=== PATIENT | male | born 1980 | race Caucasian/White ===

== ENCOUNTER 2025-06-04 12:29 | Day surgery (SDC) | payer BC ==
[~2025-06-04] VITALS: Ht 193 cm; Wt 148.6 kg
[2025-06-04] MEDS ORDERED: CYCL10 PO (12:36)
[2025-06-04] MEDS ORDERED: HYDACE10B (12:37)
[2025-06-04] MEDS ORDERED: FLUT1DIS5 (12:38)
[2025-06-04] MEDS ORDERED: CeFAZolin Sodium 3,000 MG VIAL ONE (13:14)
[2025-06-04] MEDS ORDERED: ALLEGRA ALLERGY60 MG (13:25)
[2025-06-04] MEDS ORDERED: NAPR220 (13:25)
[2025-06-04] MEDS ORDERED: FentaNYL Citrate 50 MCG/ML 2 ML Injection ONE ×2 (13:46→14:32)
[2025-06-04] MEDS ORDERED: Midazolam HCl 1MG / ML 2ML Vial ONE (13:47)
--- NOTE | 2025-06-04 14:12 | NUR ---
06/04/25 1412 Yvette Sierra 1404: TIMEOUT FOR BLOCK 1406: START OF BLOCK PROCEDURE BY DR CORONA TO RIGHT ARM (OPERATIVE ARM). PT ON ROOM AIR. 1408: END OF BLOCK PROCEDURE BY DR CORONA. PT TOLERATED WELL.
[2025-06-04] MEDS ORDERED: ePHEDrine Sulfate 50 MG/ML 1ML Injection ONE (14:14)
[2025-06-04] MEDS ORDERED: Ketorolac Tromethamine 30mg Vial ONE (15:38)
[2025-06-04] MEDS ORDERED: Ondansetron HCl 2 MG / ML 2ML Vial ONE (15:38)
[2025-06-04] MEDS ORDERED: Albuterol 2.5 MG/3 ML VIAL ONE (15:46)
--- NOTE | 2025-06-04 15:59 | NUR ---
06/04/25 1559 Chris Galvez ADMINISTERED ALBUTEROL UPDRAFT PER V/O FROM DR CORONA. PT HAD STOMACH CONTENT PRESENT WHEN EXTUBATED DURING SURGERY. PT DENIES PAIN AT THIS TIME. BEFORE UPDRAFT ADMINISTERED, PT HAD EXPIRATORY WHEEZES. LUNG SOUNDS CLEAR AFTER ALBUTEROL UPDRAFT.
[2025-06-04 16:10] VITALS: BP 117/71
--- NOTE | 2025-06-04 16:40 | NUR ---
06/04/[address] AT BEDSIDE. OK TO D/C PT WITH O2 SATS GREATER OR EQUAL TO 91%. PT SATURATIONS IMPROVING ON RA. PLAN TO WALK PT AND MONITOR O2 SATURATIONS.
== END 2025-06-04 16:51 | disposition home or self-care (01) ==
LOC: ORSCSDS 12:29
PROVIDERS: Orthopaedic Surgery
PROC: 0LM30ZZ Reattachment of Right Upper Arm Tendon, Open Approach (ICD-10-PCS; principal; 2025-06-04 14:00)
DX: S46.211A Strain of muscle, fascia and tendon of other parts of biceps, right arm, initial encounter (principal); E66.9 Obesity, unspecified; Z68.39 Body mass index [BMI] 39.0-39.9, adult; Z79.899 Other long term (current) drug therapy
CPT/HCPCS: C1713; J0690; J1885; J2250; J2405; J2704; J3010; J7120